=== PATIENT | male | born 1950 | race Caucasian/White ===

== ENCOUNTER → 2016-05-31 | Outpatient (CLI) | payer MEDICARE, OTHER ==
[2016-05-31 08:25] LABS: Blood Urea Nitrogen 11 mg/dL (9-20); Non-African American GFR(MDRD) >60 (>60 ml/min/1.73 sqM)
--- NOTE | 2016-05-31 10:00 | CT ---
EXAMINATION TYPE: CT abdomen w con DATE OF EXAM: 05/31/2016 9:03 AM COMPARISON: Ultrasound abdomen 21 February 2016 HISTORY: Renal cyst, abn US CT DLP: 458.7 mGycm Automated exposure control for dose reduction was used. TECHNIQUE: Helical acquisition of images was performed from the lung bases through the top of iliac crest to include entire abdomen. CONTRAST: Performed without Oral Contrast and with IV Contrast, patient injected with 100 ml mL of Omnipaque 30 0. FINDINGS: There are coronary artery calcifications. There is a small hiatal hernia. LUNG BASES: No significant abnormality is appreciated. LIVER/GB: Liver shows low attenuation which may be due to fatty infiltration. Liver is borderline enl arged. Cystic focus in the left lobe of the liver is confirmed measuring 15 mm. Gallbladder is unrema rkable. PANCREAS: No significant abnormality is seen. SPLEEN: Small amount of tissue present within the left upper quadrant is bandlike in appearance and m ay represent small remnant measuring 3 cm x 1.4 cm x 2.8 cm. ADRENALS: There is a mass associated with the left gland anteriorly and inferiorly measuring approxim ately 2.7 x 2.7 x 2.7 cm. KIDNEYS: Upper pole cortical cyst measures 4.4 cm and shows Hounsfield unit measurements compatible w ith simple cyst. No hydronephrosis. BOWEL: No bowel obstruction. Colonic interposition anterior to the right lobe of the liver. LYMPH NODES: Negative for adenopathy OSSEOUS STRUCTURES: Degenerative disc changes, facet arthropathy and the visualized spine. Small umb ilical hernia contains fat. FREE AIR: No Free Air visible ASCITES: None visible. RETROPERITONEAL ADENOPATHY: No Retroperitoneal Adenopathy visible. OTHER: Aorta shows some mild dilation in the infrarenal location measuring 2.3 cm. There is atheromat ous change. IMPRESSION: CYSTS WITHIN THE LIVER AND RIGHT KIDNEY. QUESTION POSTSPLENECTOMY CHANGE OR POSSIBLE CONGENITAL ANOMA LY. POSSIBLE FATTY INFILTRATION OF THE LIVER, HEPATOMEGALY. LEFT ADRENAL MASS MAY REPRESENT ADENOMA, THIS MAY BE CONFIRMED WITH MRI WITH AND WITHOUT CONTRAST. ADDITIONAL FINDINGS ABOVE.
== END | disposition home or self-care (01) ==
LOC: RADCTMAIN 07:47
PROVIDERS: ATTEND Family Medicine
DX: R16.0 Hepatomegaly, not elsewhere classified (principal); N28.1 Cyst of kidney, acquired; K76.89 Other specified diseases of liver; E27.8 Other specified disorders of adrenal gland
CPT/HCPCS: 74160; 82565; 84520

== ENCOUNTER 2016-12-08 00:23 | Emergency (ER) | payer MEDICARE, OTHER ==
[2016-12-08 00:31] VITALS: RESP 20; TEMP 98.5
[2016-12-08 00:52] VITALS: BP 156/89
[2016-12-08] MEDS ORDERED: ALBUTEROL NEBULIZED 2.5 MG/3 ML INHALATION STA (01:44)
--- NOTE | 2016-12-08 02:11 | XR ---
EXAM: XR Chest, 2 Views CLINICAL HISTORY: Reason: Pain TECHNIQUE: Frontal and lateral views of the chest. COMPARISON: 08/16/2015 FINDINGS: Lungs: The lungs are again noted to be overinflated, as seen on prior study, suggesting COPD. No evidence of acute infiltrates. Pleural space: Unremarkable. No pneumothorax. Heart: Unremarkable. No cardiomegaly. Mediastinum: Unremarkable. Bones/joints: Unchanged. IMPRESSION: COPD. No active intrathoracic disease.
[2016-12-08 02:23] VITALS: PULSE 84
--- NOTE | 2016-12-08 02:25 | ED ---
URI HPI - General Chief Complaint: Upper Respiratory Infection Stated Complaint: Chemical Inhalation Time Seen by Provider: 12/08/16 00:38 Source: patient, RN notes reviewed, old records reviewed Mode of arrival: EMS Limitations: no limitations - History of Present Illness Initial Comments: This is a 66 year old male with CC of chemical inhalation at home. Patient reports that he was usining multiple bug bombs for his flea infestation at home. REports that he was using a bleach liquid to spraiy on things when it came up and splashed and he started to cough and has a sore throat. He did not ingest the chemicals. Patient reports he went outside and could not stop couging. Patient is a smoker, denies history of COPD or asthma. - Related Data Previous Rx's Medication Instructions Recorded Albuterol Inhaler [Ventolin Hfa 1 - 2 puff INHALATION Q6HR PRN #1 12/08/16 Inhaler] inhaler Allergies Allergy/AdvReac Type Severity Reaction Status Date / Time No Known Allergies Allergy Verified 12/08/16 00:26 Review of Systems ROS Statement: Those systems with pertinent positive or pertinent negative responses have been documented in the HPI. ROS Other: All systems not noted in ROS Statement are negative. Past Medical History Past Medical History: COPD History of Any Multi-Drug Resistant Organisms: None Reported Additional Past Surgical History / Comment(s): splenectomy Past Psychological History: No Psychological Hx Reported Smoking Status: Former smoker Past Alcohol Use History: Occasional Past Drug Use History: None Reported General Exam - General Exam Comments Initial Comments: WEll appearing 66 year old male, no distress. Limitations: no limitations General appearance: alert, in no apparent distress Head exam: Present: atraumatic, normocephalic, normal inspection Eye exam: Present: normal appearance, PERRL, EOMI. Absent: scleral icterus, conjunctival injection, periorbital swelling ENT exam: Present: normal exam, mucous membranes moist Neck exam: Present: normal inspection. Absent: tenderness, meningismus, lymphadenopathy Respiratory exam: Present: normal lung sounds bilaterally. Absent: respiratory distress, wheezes, rales, rhonchi, stridor Cardiovascular Exam: Present: regular rate, normal rhythm, normal heart sounds. Absent: systolic murmur, diastolic murmur, rubs, gallop, clicks GI/Abdominal exam: Present: soft, normal bowel sounds. Absent: distended, tenderness, guarding, rebound, rigid Extremities exam: Present: normal inspection, full ROM, normal capillary refill. Absent: tenderness, pedal edema, joint swelling, calf tenderness Back exam: Present: normal inspection Neurological exam: Present: alert, oriented X3, CN II-XII intact Psychiatric exam: Present: normal affect, normal mood Skin exam: Present: warm, dry, intact, normal color. Absent: rash Course Vital Signs 12/08/16 12/08/16 12/08/16 00:26 00:43 00:47 Temperature 98.5 F Pulse Rate 87 82 Respiratory 20 20 20 Rate Blood Pressure 140/100 156/89 O2 Sat by Pulse 94 L 96 Oximetry 12/08/16 12/08/16 01:56 02:23 Temperature Pulse Rate 80 84 Respiratory Rate Blood Pressure O2 Sat by Pulse Oximetry Medical Decision Making - Medical Decision Making This is a 66 year old male with CC of chemical inhalation at home. Patient reports that he was usining multiple bug bombs for his flea infestation at home. REports that he was using a bleach liquid to spraiy on things when it came up and splashed and he started to cough and has a sore throat. He did not ingest the chemicals. Patient reports he went outside and could not stop couging. Patient is a smoker, Patient has no to mionr occasional wheezing. No signs of respiratory distress. He arrived via EMS. PAtient geiven douneb treatment, and CXR. CXR is negative for any acute process. Discussed ill discharge patient with an inhaler and steroid pack. REturn parameters discussed. - Radiology Data Radiology results: report reviewed COPD. No acute cardiopulmonary process. Disposition Clinical Impression: Exposure to chemical inhalation Disposition: HOME SELF-CARE Condition: Good Instructions: Pneumonitis (ED) Additional Instructions: Patient advised to follow-up with primary care physician. Patient is to remain and open air. Patient should avoid your house until the chemical have aired out. RETURN TO THE EMERGENCY DEPARTMENT IF ANY ALARMING SIGNS OR SYMPTOMS OCCUR. Prescriptions: Albuterol Inhaler [Ventolin Hfa Inhaler] 1 - 2 puff INHALATION Q6HR PRN #1 inhaler PRN Reason: Shortness Of Breath Referrals: Reuben Soto DO [Primary Care Provider] - 1-2 days Time of Disposition: 02:22
== END 2016-12-08 02:33 | disposition home or self-care (01) ==
LOC: EC 00:23
DX: R05 Cough (principal); Z77.098 Contact with and (suspected) exposure to other hazardous, chiefly nonmedicinal, chemicals; Z87.891 Personal history of nicotine dependence
CPT/HCPCS: 71020; 94640; 99284

== ENCOUNTER 2016-12-17 17:53 | Inpatient (IN) | payer MEDICARE, OTHER ==
--- NOTE | 2016-12-17 21:40 | ED ---
Psych HPI - General Source: EMS Mode of arrival: EMS <Chirag Burnham - Last Filed: 12/17/16 21:36> <Pieter Vee - Last Filed: 12/18/16 06:46> <Pieter Hernandes - Last Filed: 12/18/16 11:21> - General Chief Complaint: Psychiatric Symptoms Stated Complaint: mental health Time Seen by Provider: 12/17/16 18:00 - History of Present Illness Initial Comments: 66-year-old male with past medical history of alcoholism presented for evaluation of suicidal ideations. He states that his girlfriend just broke up with him due to his alcoholic tendencies. He has been trying to get into inpatient rehab for alcohol abuse and has been having difficulty. 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 They're discussions with them they discovered that he was suicidal and called EMS and police. They arrived and found the patient cooperative and willing to come to the hospital for further evaluation. He states that he had a plan to either commit suicide by carbon monoxide via his car or to overdose on his Wellbutrin at home. He states that he has not taken any medications right now to hurt himself and it is been a little bit since his last EtOH consumption. He denies any intention of hurting others. (Chirag Burnham) - Related Data Home Medications Medication Instructions Recorded Confirmed Milk Thistle 150 mg PO DAILY 12/17/16 12/17/16 Multivitamins, Thera [Multivitamin 1 tab PO DAILY 12/17/16 12/17/16 (formulary)] Allergies Allergy/AdvReac Type Severity Reaction Status Date / Time No Known Allergies Allergy Verified 12/17/16 19:07 Review of Systems ROS Other: All systems not noted in ROS Statement are negative. Constitutional: Denies: fever, chills Eyes: Denies: eye pain, eye discharge ENT: Denies: ear pain, throat pain Respiratory: Denies: cough, dyspnea Cardiovascular: Denies: chest pain, palpitations Endocrine: Denies: fatigue, heat or cold intolerance Gastrointestinal: Denies: abdominal pain, nausea, vomiting Genitourinary: Denies: urgency, dysuria Musculoskeletal: Denies: back pain, joint swelling Skin: Denies: rash, lesions Neurological: Denies: headache, weakness Psychiatric: Denies: anxiety, depression Hematological/Lymphatic: Denies: easy bleeding, easy bruising <Chirag Burnham - Last Filed: 12/17/16 21:36> ROS Other: All systems not noted in ROS Statement are negative. <Pieter Vee - Last Filed: 12/18/16 06:46> ROS Other: All systems not noted in ROS Statement are negative. <Pieter Hernandes - Last Filed: 12/18/16 11:21> ROS Statement: Those systems with pertinent positive or pertinent negative responses have been documented in the HPI. Past Medical History Past Medical History: COPD History of Any Multi-Drug Resistant Organisms: None Reported Additional Past Surgical History / Comment(s): splenectomy, right partial lung removal Past Psychological History: No Psychological Hx Reported Smoking Status: Former smoker Past Alcohol Use History: Occasional Past Drug Use History: None Reported <Messi Burnhamsse Michelle - Last Filed: 12/17/16 21:36> General Exam Limitations: no limitations General appearance: alert, in no apparent distress Head exam: Present: atraumatic, normocephalic, normal inspection Eye exam: Present: normal appearance, PERRL, EOMI. Absent: scleral icterus, conjunctival injection, periorbital swelling ENT exam: Present: normal exam, mucous membranes moist Neck exam: Present: normal inspection. Absent: tenderness, meningismus, lymphadenopathy Respiratory exam: Present: normal lung sounds bilaterally. Absent: respiratory distress, wheezes, rales, rhonchi, stridor Cardiovascular Exam: Present: regular rate, normal rhythm, normal heart sounds. Absent: systolic murmur, diastolic murmur, rubs, gallop, clicks GI/Abdominal exam: Present: soft, normal bowel sounds. Absent: distended, tenderness, guarding, rebound, rigid Rectal exam: Present: deferred Extremities exam: Present: normal inspection, full ROM, normal capillary refill. Absent: tenderness, pedal edema, joint swelling, calf tenderness Back exam: Present: normal inspection Neurological exam: Present: alert, oriented X3, CN II-XII intact Psychiatric exam: Present: normal mood, depressed, suicidal ideation. Absent: agitated, anxious, flat affect, manic, homicidal ideation Skin exam: Present: warm, dry, intact, normal color. Absent: rash <Chirag Burnham - Last Filed: 12/17/16 21:36> Medical Decision Making <Chirag Burnham - Last Filed: 12/17/16 21:36> - Lab Data Result diagrams: 12/17/16 23:19 12/17/16 23:19 <Pieter Vee - Last Filed: 12/18/16 06:46> - Lab Data Result diagrams: 12/17/16 23:19 12/17/16 23:19 <Pieter Hernandes - Last Filed: 12/18/16 11:21> - Medical Decision Making 66-year-old male with past medical history of alcohol is and presented for evaluation of suicidal ideations. He states that given her recent life stressors he has been complicating committing suicide either by overdose with Wellbutrin or carbon monoxide exposure via his car. On physical examination there are no acute abnormalities and the patient is compliant with all requests and questioning. Blood alcohol level was negative and UDS was also clean. At this point the patient was cleared to be seen by psych and patient care was turned over to Dr. Vee. (Chirag Burnham) EKG shows normal sinus rhythm, ventricular rate is 66, AR interval 150, QRS duration 84, QTC 431. Patient was reevaluated during my shift, he is still suicidal. He is currently awaiting transfer to the [facility]. Patient's care will be signed out to Dr. Hernandes. (Pieter Vee) The patient was seen by previous shift and signed out to me. He is still suicidal upon evaluation this morning. There are no signs of withdrawal. Case is discussed with the psychiatric nurse and they would like to get him admitted to psychiatry. A certification is completed. It is felt as though the patient is medically cleared for further psychiatric treatment. (Pieter Hernandes) - Lab Data Lab Results 12/17/16 12/17/16 12/17/16 Range/Units 20:03 23:19 23:19 WBC 10.1 (3.8-10.6) k/uL RBC 4.79 (4.30-5.90) m/uL Hgb 15.8 (13.0-17.5) gm/dL Hct 47.9 (39.0-53.0) % MCV 100.1 H (80.0-100.0) fL MCH 33.0 (25.0-35.0) pg MCHC 33.0 (31.0-37.0) g/dL RDW 14.9 (11.5-15.5) % Plt Count 379 (150-450) k/uL Neutrophils % 58 % Lymphocytes % 28 % Monocytes % 7 % Eosinophils % 1 % Basophils % 1 % Neutrophils # 5.9 (1.3-7.7) k/uL Lymphocytes # 2.8 (1.0-4.8) k/uL Monocytes # 0.7 (0-1.0) k/uL Eosinophils # 0.1 (0-0.7) k/uL Basophils # 0.1 (0-0.2) k/uL Macrocytosis Slight Sodium 137 (137-145) mmol/L Potassium 4.5 (3.5-5.1) mmol/L Chloride 104 (98-107) mmol/L Carbon Dioxide 23 (22-30) mmol/L Anion Gap 10 mmol/L BUN 18 (9-20) mg/dL Creatinine 0.90 (0.66-1.25) mg/dL Est GFR (MDRD) Af Amer >60 (>60 ml/min/1.73 sqM) Est GFR (MDRD) Non-Af >60 (>60 ml/min/1.73 sqM) Glucose 94 (74-99) mg/dL Calcium 9.8 (8.4-10.2) mg/dL Total Bilirubin 0.6 (0.2-1.3) mg/dL AST 22 (17-59) U/L ALT 35 (21-72) U/L Alkaline Phosphatase 63 (38-126) U/L Total Protein 6.6 (6.3-8.2) g/dL Albumin 3.9 (3.5-5.0) g/dL Urine Opiates Screen Not Detected (NotDetected) Ur Oxycodone Screen Not Detected (NotDetected) Urine Methadone Screen Not Detected (NotDetected) Ur Propoxyphene Screen Not Detected (NotDetected) Ur Barbiturates Screen Not Detected (NotDetected) U Tricyclic Antidepress Not Detected (NotDetected) Ur Phencyclidine Scrn Not Detected (NotDetected) Ur Amphetamines Screen Not Detected (NotDetected) U Methamphetamines Scrn Not Detected (NotDetected) U Benzodiazepines Scrn Not Detected (NotDetected) Urine Cocaine Screen Not Detected (NotDetected) U Marijuana (THC) Screen Not Detected (NotDetected) Disposition <Chirag Burnham - Last Filed: 12/17/16 21:36> <Pieter Vee - Last Filed: 12/18/16 06:46> Time of Disposition: 11:21 <Pieter Hernandes - Last Filed: 12/18/16 11:21> Clinical Impression: Depression, Suicidal ideation, Alcohol abuse Disposition: ADMITTED IP TO THIS HOSP Condition: Fair Referrals: Reuben Soto DO [Primary Care Provider] - 1-2 days
[2016-12-17] MEDS ORDERED: NICOTINE 21MG/24HR PATCH TRANSDERM STA (22:43)
[2016-12-17 23:28] LABS: Basophils # (A) 0.1 k/uL (0-0.2); Basophils % (A) 1 %; CH 34.6; CHCM 34.8; Eosinophils # (A) 0.1 k/uL (0-0.7); Eosinophils % (A) 1 %; HCT 47.9 % (39.0-53.0); HDW 2.72; HGB 15.8 gm/dL (13.0-17.5); Luc # (Auto) 0.41; Luc % (Auto) 4; Lymphocytes # (A) 2.8 k/uL (1.0-4.8); Lymphocytes % (A) 28 %; MCV 100.1 fL (80.0-100.0); Macrocytosis Slight; Monocytes # (A) 0.7 k/uL (0-1.0); Monocytes % (A) 7 %; Neutrophils # (A) 5.9 k/uL (1.3-7.7); Neutrophils % (A) 58 %; RBC 4.79 m/uL (4.30-5.90); RDW 14.9 % (11.5-15.5); WBC 10.1 k/uL (3.8-10.6); WBC (Perox) 9.57
[2016-12-17 23:40] LABS: ALT 35 U/L (21-72); AST 22 U/L (17-59); Alkaline Phosphatase 63 U/L (38-126); Anion Gap 10 mmol/L; Blood Urea Nitrogen 18 mg/dL (9-20); Calcium 9.8 mg/dL (8.4-10.2); Carbon Dioxide 23 mmol/L (22-30); Chloride 104 mmol/L (98-107); Glucose 94 mg/dL (74-99); Non-African American GFR(MDRD) >60 (>60 ml/min/1.73 sqM); Potassium 4.5 mmol/L (3.5-5.1); Sodium 137 mmol/L (137-145); Total Bilirubin 0.6 mg/dL (0.2-1.3); Total Protein 6.6 g/dL (6.3-8.2)
[2016-12-18] MEDS ORDERED: ACETAMINOPHEN TAB 325 MG TAB PO PRN (16:24)
[2016-12-18] MEDS ORDERED: ZIPRASIDONE 20 MG VIAL IM PRN (16:24)
[2016-12-18] MEDS ORDERED: MAGNESIUM HYDROXIDE 2,400 MG/10 ML CUP PO PRN (16:24)
[2016-12-18] MEDS ORDERED: MAG HYDROX/AL HYDROX/SIMETH 30 ML CUP PO PRN (16:24)
[2016-12-18] MEDS: NICOTINE 21MG/24HR PATCH TRANSDERM SCH (19:30)
[2016-12-18] MEDS: LORazepam 1 MG TAB PO PRN (21:22)
[2016-12-19] MEDS: NICOTINE 21MG/24HR PATCH TRANSDERM SCH (09:33)
[2016-12-19] MEDS: THIAMINE 100 MG TAB PO SCH (12:20)
[2016-12-19] MEDS: MULTIVITAMINS, THERA 1 EACH TAB PO SCH (12:20)
--- NOTE | 2016-12-19 14:55 | P.CONS ---
History of Present Illness - Reason for Consult Consult date: 12/19/16 medical H n P - History of Present Illness 66 yr old with history of alcohol overuse comes into the hospital with suicidal ideation. Pt had apparently made a plan for CO poisoning in his car. Drinks excessively. Pt does have a history of depression in the past Pt also questions about hepatitis C, and possiblity of him having it Last drink was 3 days ago No cp, christie, n/v, headaches, blurry vision, abd. pain, urinary urgency, constipation. Review of Systems All systems: negative (noted in hpi) Past Medical History Past Medical History: COPD History of Any Multi-Drug Resistant Organisms: None Reported Additional Past Surgical History / Comment(s): splenectomy, right partial lung removal Past Psychological History: No Psychological Hx Reported Smoking Status: Former smoker Past Alcohol Use History: Occasional Past Drug Use History: None Reported Medications and Allergies Home Medications Medication Instructions Recorded Confirmed Type Milk Thistle 150 mg PO DAILY 12/17/16 12/17/16 History Multivitamins, Thera [Multivitamin 1 tab PO DAILY 12/17/16 12/17/16 History (formulary)] Allergies Allergy/AdvReac Type Severity Reaction Status Date / Time No Known Allergies Allergy Verified 12/17/16 19:07 Physical Exam Vitals: Vital Signs Temp Pulse Pulse Resp BP BP 12/19/16 13:38 81 18 135/84 12/19/16 07:11 97.8 F 69 18 136/88 - Constitutional General appearance: no acute distress - EENT Eyes: EOMI, PERRLA - Neck Neck: normal ROM - Respiratory Respiratory: bilateral: CTA, negative: dullness, rales, rhonchi - Cardiovascular Rhythm: regular Heart sounds: normal: S1, S2 Abnormal Heart Sounds: no systolic murmur - Gastrointestinal General gastrointestinal: normal bowel sounds, no organomegaly, soft - Neurologic Neurologic: CNII-XII intact - Psychiatric Psychiatric: A&O x's 3 Results CBC & Chem 7: 12/17/16 23:19 12/17/16 23:19 Assessment and Plan Plan: Major depression with suicidal ideation Left adrenal mass, 

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
[2016-12-19] MEDS: LORazepam 1 MG TAB PO PRN (20:51)
[2016-12-20 06:14] LABS: Hepatitis B Surface Ag Index 0.05
[2016-12-20 06:20] LABS: Hepatitis B Core IgM Index 0.19
[2016-12-20 06:32] LABS: Hepatitis C Virus IgG Ab Negative (Negative); Hepatitis C Virus IgG Index 0.11
[2016-12-20 06:34] VITALS: BP 137/91; PULSE 80; RESP 20; TEMP 97.5
--- NOTE | 2016-12-20 10:04 | P.DS ---
Providers Date of admission: 12/18/16 13:02 Expected date of discharge: 12/20/16 Attending physician: Aiyana Cortes MD Consults: 12/18/16 16:24 Consult Physician Routine Consulting Provider: Ricardo Mccauley Consult Reason/Comments: H & P and medical care Do you want consulting provider notified?: Yes [facility] Course: Discharge Diagnoses: Alcohol use disorder, moderate; alcohol-induced depressive disorder with use Reason for Admission:[ Patient is a 66-year-old male who was admitted after he went to the [place] and requested inpatient alcohol treatment, he also reported having suicidal ideation and he was allowed to return to his home where EMS and brought him to the emergency room. Patient states that when he is drinking alcohol he has suicidal ideations and he reported that he had plans of taking an overdose or using carbon monoxide but states he had no intent to act on these and has no past history of any suicide attempts and states that he is too cowardly to act on them. Patient states that he has recently broken up with his girlfriend due to his use of alcohol, he states he still has contact with her and she is supportive of his getting treatment. Patient reports that he had been drinking 10 beers a day with an occasional half pint a day the last 3 years, he reports heavier drinking 8 years ago. Patient has had sobriety 3 times in the past for 3 years each time. Patient has no prior psychiatric inpatient treatment or outpatient treatment. He has attended alcohol rehab once in the past in 1984.] Hospital Course: Patient was admitted on a voluntary basis, routine laboratory studies were ordered and a medical consultation was requested. Patient was placed on routine observation and ordered group and activity therapy. Patient was also placed on Ativan for alcohol withdrawal. Patient was seen and he stated that he was no longer having any suicidal ideation and had no wish to or intent to act and states that he verbalizes those thoughts when he has been drinking. He reported that he was not feeling hopeless or helpless, was sad about the breakup with his girlfriend but they continue to communicate with each other and he is hopeful that the relationship will continue. Patient was interested in an alcohol rehab program and states that he has contacts with AA in his community. Patient refused any medication for depression. Patient attended groups and activities and was participating. Patient took Ativan on several occasions mostly for complaints of sleep difficulties, he was eating well and his vital signs were stable. He was also informed that he should follow-up with his primary care physician regarding his concerns about hepatitis C and continued follow-up for his COPD and lung resection. Patient was no longer verbalizing any suicidal ideation and stated that he was not feeling hopeless or helpless and was interested in alcohol inpatient rehab. Mental Status:Appearance/Attitude: Patient was neatly and appropriately dressed , making good eye contact and was cooperative. Behavior: Patient did not report any psychomotor agitation or retardation. Speech/Language: Patient's speech was spontaneous, normal volume and rhythm and he was coherent. Thought Process: Patient was goal-directed there is no evidence of circumstantial or tangential thought loose associations or flight of ideas. Thought Content: Patient denied any auditory or visual hallucinations and no delusions or paranoid ideation were elicited. Patient reported that he was sad about the breakup with his girlfriend but was not feeling hopeless or helpless and did not report any feelings of worthlessness. Patient reported that he was eating well and his sleep was fair. Patient reports that he has not been sleeping well at home. Suicidal/Homicidal Ideation: Patient reported no current suicidal or homicidal ideation and stated he had no wish to and no intent to act and states that he makes suicidal statements when he has been drinking. Sensorium/Cognition: Patient was alert and oriented to person, place, and time and his memory is grossly intact. Mood/Affect: Patient's mood was pleasant and his affect was appropriate. Insight/Judgement: Patient's insight and judgment are fair. Risk Assessment: Patient's risk assessment is moderate due to his use of alcohol , making statements about suicide, he has no prior suicide attempts, is currently living alone. Discharge Plan: Patient was not begun on any psychotropic medication at his request. Patient will not be discharged on any medication. Patient has been accepted at [facility] and will begin on December 22. Patient will be discharged to return home and follow up with the inpatient alcohol rehab at [facility]. Patient was encouraged to remain sober and attend AA meetings. Patient and I discussed good sleep hygiene. Patient Condition at Discharge: Stable Plan - Discharge Summary New Discharge Prescriptions: Continue Multivitamins, Thera [Multivitamin (formulary)] 1 tab PO DAILY Milk Thistle 150 mg PO DAILY Discharge Medication List Milk Thistle 150 mg PO DAILY 12/17/16 [History] Multivitamins, Thera [Multivitamin (formulary)] 1 tab PO DAILY 12/17/16 [History ] Follow up Appointment(s)/Referral(s): intake, intake [Other] - 12/28/16 9:00 am (12/28/16 at 9:00 am with Mercedes) intake, intake [Other] - 12/22/16 10:30 am Reuben Soto DO [Primary Care Provider] - 1-2 days Discharge Disposition: HOME SELF-CARE
[2016-12-20] MEDS: NICOTINE 21MG/24HR PATCH TRANSDERM SCH (10:30)
[2016-12-20] MEDS: MULTIVITAMINS, THERA 1 EACH TAB PO SCH (14:19)
[2016-12-20] MEDS: THIAMINE 100 MG TAB PO SCH (14:19)
== END 2016-12-20 16:04 | disposition home or self-care (01) | DRG 897 ==
LOC: EC 17:53 → 3MHU 12-18 13:02
PROVIDERS: ADMIT Psychiatry & Neurology Psychiatry; ATTEND Psychiatry & Neurology Psychiatry
PROC: HZ2ZZZZ Detoxification Services for Substance Abuse Treatment (ICD-10-PCS; principal; 2016-12-18)
DX: F10.24 Alcohol dependence with alcohol-induced mood disorder (principal); F10.239 Alcohol dependence with withdrawal, unspecified; R45.851 Suicidal ideations; E27.8 Other specified disorders of adrenal gland; J44.9 Chronic obstructive pulmonary disease, unspecified; G47.9 Sleep disorder, unspecified; K76.89 Other specified diseases of liver; I10 Essential (primary) hypertension; F32.9 Major depressive disorder, single episode, unspecified; T43.206A Underdosing of unspecified antidepressants, initial encounter; M19.90 Unspecified osteoarthritis, unspecified site; M10.9 Gout, unspecified; F12.90 Cannabis use, unspecified, uncomplicated; F17.210 Nicotine dependence, cigarettes, uncomplicated; Z71.41 Alcohol abuse counseling and surveillance of alcoholic; Z71.6 Tobacco abuse counseling; Z81.1 Family history of alcohol abuse and dependence; Z62.810 Personal history of physical and sexual abuse in childhood; Z90.2 Acquired absence of lung [part of]; Z90.81 Acquired absence of spleen; Z86.69 Personal history of other diseases of the nervous system and sense organs; Z65.3 Problems related to other legal circumstances; Z63.0 Problems in relationship with spouse or partner; Z62.820 Parent-biological child conflict; Z62.22 Institutional upbringing; Y90.0 Blood alcohol level of less than 20 mg/100 ml
CPT/HCPCS: 36415; 80053; 80074; 80306; 82075; 84443; 85025; 93005; 99285

== ENCOUNTER 2017-04-15 18:05 | Emergency (ER) | payer MEDICARE, OTHER ==
[2017-04-15] MEDS ORDERED: BUTALB/APAP/CAFF 50-325-40MG TAB PO STA (18:14)
[2017-04-15 18:24] VITALS: RESP 18
--- NOTE | 2017-04-15 19:09 | CT ---
EXAMINATION: CT brain wo con DATE AND TIME: 04/15/2017 6:50 PM ORDERING PROVIDER: Reuben Trejo CLINICAL INDICATION: headache TECHNIQUE: Standard departmental protocol. COMPARISON: None. DESCRIPTION: The calvarium is intact. There is no intracranial hemorrhage. There is no mass or mass e ffect. There is no definite new attenuation defect. Remainder of the intra-axial and extra-axial comp artment examination is unremarkable. The paranasal sinuses, middle ear cavities, and mastoid sinus ai r cells are clear. The orbits are intact. IMPRESSION: NO ACUTE PROCESS.
--- NOTE | 2017-04-15 19:25 | ED ---
Headache HPI - General Stated Complaint: hypertension Time Seen by Provider: 04/15/17 18:07 Source: patient, EMS, RN notes reviewed Mode of arrival: EMS Limitations: no limitations - History of Present Illness Initial Comments: This a 66-year-old male presents emergency Department with chief complaint of headache. Patient states he is elevated today went to his primary care physicians at the [place] who told him this was a normal tension headache and given him naproxen. Patient states he took naproxen which helped alleviate his symptoms though after medication wore off his headache returned. Patient denies blurred vision, fever, chills, neck pain, neck stiffness, chest pain, shortness breath, focal weakness, nausea, vomiting. Patient states that his blood pressure was mildly elevated at this doctor's office to discuss blood pressure medication. Patient states he called back and told him that he had a headache and was told to go to emergency department because he did not have an opening. Patient states that he did not try any other medications. Denies any drug ALLERGIES. Patient states that he was given steroids also for a pinched nerve in his back. - Related Data Home Medications Medication Instructions Recorded Confirmed Milk Thistle 150 mg PO DAILY 12/17/16 12/17/16 Multivitamins, Thera [Multivitamin 1 tab PO DAILY 12/17/16 12/17/16 (formulary)] Allergies Allergy/AdvReac Type Severity Reaction Status Date / Time No Known Allergies Allergy Verified 04/15/17 19:01 Review of Systems ROS Statement: Those systems with pertinent positive or pertinent negative responses have been documented in the HPI. ROS Other: All systems not noted in ROS Statement are negative. Past Medical History Past Medical History: COPD History of Any Multi-Drug Resistant Organisms: None Reported Additional Past Surgical History / Comment(s): splenectomy, right partial lung removal Past Psychological History: No Psychological Hx Reported Smoking Status: Current some day smoker Past Alcohol Use History: None Reported Past Drug Use History: None Reported General Exam Limitations: no limitations General appearance: alert, in no apparent distress Head exam: Present: atraumatic, normocephalic, normal inspection Eye exam: Present: normal appearance, PERRL, EOMI. Absent: scleral icterus, conjunctival injection, periorbital swelling ENT exam: Present: normal exam, normal oropharynx, mucous membranes moist, TM's normal bilaterally Neck exam: Present: normal inspection, full ROM. Absent: tenderness, meningismus, lymphadenopathy Respiratory exam: Present: normal lung sounds bilaterally. Absent: respiratory distress, wheezes, rales, rhonchi, stridor Cardiovascular Exam: Present: regular rate, normal rhythm, normal heart sounds. Absent: systolic murmur, diastolic murmur, rubs, gallop, clicks GI/Abdominal exam: Present: soft, normal bowel sounds. Absent: distended, tenderness, guarding, rebound, rigid Neurological exam: Present: alert, oriented X3, CN II-XII intact, reflexes normal, other (Finger to nose intact bilaterally without shooting.). Absent: motor sensory deficit Skin exam: Present: warm, dry, intact, normal color. Absent: rash Course Vital Signs 04/15/17 18:15 Temperature 97.2 F L Pulse Rate 76 Respiratory 18 Rate Blood Pressure 166/97 O2 Sat by Pulse 98 Oximetry Medical Decision Making - Medical Decision Making 66-year-old male presented for headache. Patient has no neurological deficits. Patient has a normal neuro exam CT shows no acute mildly. Patient has a tension headache. Patient was conversant states he feels much better. Patient be discharged return parameters discussed. Disposition Clinical Impression: Headache Disposition: HOME SELF-CARE Condition: Stable Instructions: Acute Headache (ED) Additional Instructions: Please return to the Emergency Department if symptoms worsen or any other concerns. Referrals: Reuben Soto DO [Primary Care Provider] - 1-2 days Time of Disposition: 19:25
[2017-04-15 19:45] VITALS: BP 156/99; PULSE 82; TEMP 97.4
== END 2017-04-15 19:45 | disposition home or self-care (01) ==
LOC: EC 18:05
DX: R51 Headache (principal); F17.200 Nicotine dependence, unspecified, uncomplicated; Z79.899 Other long term (current) drug therapy
CPT/HCPCS: 70450; 99284